=== PATIENT | female | born 1945 | race Caucasian/White ===

== ENCOUNTER 2019-11-30 11:03 | Outpatient (CLI) | payer MEDICARE ==
--- NOTE | 2019-11-30 11:47 | RAD ---
EXAM: XR Thoracic Spine 3 V STANDARD PROVIDED CLINICAL HISTORY: Follow-up fracture thoracolumbar spine. COMPARISON: None FINDINGS: There is a wedge-shaped compression fracture involving the T12 vertebral body with just greater than 50% loss of height anteriorly. Exact age of this fracture is indeterminate based on this exam. There is exaggerated kyphosis of the thoracolumbar spine centered at the level of the fracture. Multi level osteophytes are present throughout the thoracic spine with narrowing of the intervertebral disc spaces and osteophyte formation involving visualized upper lumbar spine. Vascular calcifications are seen in the thoracic aorta. Surgical clips overlie the right upper quadrant. IMPRESSION: 1. Wedge-shaped compression fracture T12 vertebral body of indeterminate age. No additional fracture or subluxation is seen involving the thoracic spine. 2. Multilevel degenerative changes.
== END 2019-11-30 11:04 | disposition home or self-care (01) ==
LOC: TBSIIMAG 11:03
PROVIDERS: ATTEND Neurological Surgery
DX: S22.080A Wedge compression fracture of T11-T12 vertebra, initial encounter for closed fracture (principal); M47.814 Spondylosis without myelopathy or radiculopathy, thoracic region
CPT/HCPCS: 72072

== ENCOUNTER 2020-09-04 13:32 | Outpatient (CLI) | payer MEDICARE ==
--- NOTE | 2020-09-04 14:51 | CT ---
CT LUMBAR SPINE WITHOUT CONTRAST: Date: 09/04/2020 INDICATION: Back pain. Radiation to right leg. Comparison made to MRI lumbar spine dated 09/21/2019 and a plain film of the lumbar spine dated 11/30. FINDINGS: There is an anterior wedge compression deformity involving the T12 vertebra which was present on prio r exams and appears stable. There is retropulsion of the posterior superior cortex at T12 into the sp inal canal which was described on the MRI exam of 09/21/2019. The degree of wedge compression does no t appear significantly changed from the prior studies. Degenerative disc changes are prominent at T11 -T12 and at T12-L1 with loss of disc space and vacuum phenomenon at these levels. The other lumbar vertebra maintain height and alignment. Degenerative disc changes are seen at all le vels; however, the L5-S1 disc space is relatively well preserved. There are moderate degenerative ost eophytes from all lumbar vertebra. Facet hypertrophy is noted at all levels. T11-T12: There is retropulsion of the posterior superior T12 vertebra into the spinal canal. This do es produce compression on the conus and results in moderate central canal stenosis. This was describe d on the prior MRI exam. T12-L1: There is mild broad based disc bulge without significant central canal stenosis. L1-2: Diffuse disc bulge with facet hypertrophy results in mild central canal stenosis. L2-3: Disc bulge and facet hypertrophy results in mild central canal stenosis. L3-4: Disc bulge and facet hypertrophy results in moderate central canal stenosis. L4-5: Broad based disc bulge combined with facet hypertrophy results in moderate to severe central c anal stenosis. L5-S1: Diffuse disc bulge. There may be broad based protrusion at this level. This appears to compre ss the thecal sac resulting in moderate to severe central canal stenosis, although the spinal canal i s suboptimally evaluated due to artifact. Osteophyte complex projects into the left foraminal and sheri ears to displace the exiting left L5 nerve root. IMPRESSION: 1. Anterior wedge compression deformity at T12 with retropulsion of posterior superior T12 vertebra into the spinal canal produces compression on the conus and moderate central canal stenosis. Findings were present on the MRI of 09/21/2019 and the degree of compression does not appear significantly ch anged. 2. Multilevel degenerative disc changes throughout the lumbar spine with central canal stenosis at s everal levels as described above. 3. Incidentally noted on soft tissue images is prominent calcification at the origin of both renal a rteries. Findings suggest bilateral renal artery stenosis. This could be further assessed with angiog marc study. POS: COMFORT
== END 2020-09-04 13:33 | disposition home or self-care (01) ==
LOC: BICCT 13:32
PROVIDERS: ATTEND Family Medicine
DX: G89.4 Chronic pain syndrome (principal); M43.8X4 Other specified deforming dorsopathies, thoracic region; M48.04 Spinal stenosis, thoracic region; M51.36 Other intervertebral disc degeneration, lumbar region; M48.061 Spinal stenosis, lumbar region without neurogenic claudication; I70.1 Atherosclerosis of renal artery
CPT/HCPCS: 72131

== ENCOUNTER 2021-01-02 15:46 | Emergency (ER) | payer MEDICARE ==
[2021-01-02 17:09] LABS: #Eosinphils 0.1 thou/uL (0.0-0.7); #Lymphocytes 1.6 thou/uL (1.20-3.40); #Monocytes 0.8 thou/uL (0.11-0.59); #Neutrophils 6.2 thou/uL (1.40-6.50); %Basophils 0.2 % (0.0-1.0); %Eosinophils 1.2 % (0.0-10.0); %Lymphocytes 18.4 % (21.0-51.0); %Monocytes 9.4 % (0.0-10.0); %Neutrophils 70.8 % (42.0-75.0); Hemoglobin 12.2 g/dL (12.0-16.0); Mean Corpuscular Hemoglobin 31.4 pg (27.0-31.0); Mean Corpuscular Volume 87.4 fL (78.0-98.0); Mean Platelet Volume 6.1 fL (7.4-10.4); Platelet Count 299 thou/uL (130-400); RBC Distribution Width 12.4 % (11.5-14.5); Red Blood Cell (RBC) Count 3.88 mill/uL (4.20-5.40); White Blood Cell (WBC) Count 8.7 thou/uL (4.8-10.8)
[2021-01-02 17:24] LABS: ALT (SGPT) 15 U/L (8-55); AST (SGOT) 18 U/L (5-34); Albumin 4.1 g/dL (3.4-4.8); Alkaline Phosphatase 72 U/L (40-110); Anion Gap 16 mmol/L (10-20); BUN (Urea Nitrogen) 39 mg/dL (9.8-20.1); Bilirubin, Total 0.4 mg/dL (0.2-1.2); Calc. Creatinine Clearance 0 mL/min (70-130); Calcium 9.3 mg/dL (7.8-10.44); Carbon Dioxide 22 mmol/L (23-31); Chloride 103 mmol/L (98-107); Globulin 3.5 g/dL (2.4-3.5); Glucose 123 mg/dL (83-110); Lipase 107 U/L (8-78); Magnesium 1.7 mg/dL (1.6-2.6); Protein, Total 7.6 g/dL (5.8-8.1); Sodium 138 mmol/L (136-145)
[2021-01-02 17:32] LABS: Potassium 2.7 mmol/L (3.5-5.1)
[2021-01-02] MEDS ORDERED: Potassium Chloride 20 MEQ TAB ONE (17:48)
== END 2021-01-02 18:15 | disposition home or self-care (01) ==
LOC: ERS 15:46
DX: E87.6 Hypokalemia (principal); R19.7 Diarrhea, unspecified; E78.5 Hyperlipidemia, unspecified; I10 Essential (primary) hypertension; F17.210 Nicotine dependence, cigarettes, uncomplicated; Z79.899 Other long term (current) drug therapy
CPT/HCPCS: 36415; 80053; 83605; 83690; 83735; 85025; 94760

== ENCOUNTER 2022-12-05 10:23 | Outpatient (CLI) | payer MEDICARE | END 2022-12-05 10:24 | disposition home or self-care (01) | LOC: TBSIIMAG 10:23 | PROVIDERS: ATTEND Family Medicine | DX: M47.26 Other spondylosis with radiculopathy, lumbar region (principal); M51.16 Intervertebral disc disorders with radiculopathy, lumbar region; M47.27 Other spondylosis with radiculopathy, lumbosacral region; M17.0 Bilateral primary osteoarthritis of knee; Z87.81 Personal history of (healed) traumatic fracture | CPT/HCPCS: 72148 ==

== ENCOUNTER 2022-12-07 10:45 | Inpatient (IN) | payer MEDICARE ==
[2022-12-07 13:02] LABS: Bilirubin Negative (Negative); Blood, Urine 3+ (Negative); Clarity Turbid (Clear); Glucose, Urine (Dipstick) Normal (Negative); Ketone, Urine 40 mg/dL (Negative); Leukocyte 500 Leu/uL (Negative); Nitrite Negative (Negative); Protein, Urine (Dipstick) 30 mg/dL (Neg-Trace); Specific Gravity, Urine 1.025 (1.002-1.036); Squamous Epithelial 0-3 HPF (0-3); Urobilinogen Normal mg/dL (Less than 2)
[2022-12-07 13:17] LABS: Bacteria/HPF 2+ HPF (None Seen); WBC/HPF 21-50 HPF (0-3)
[2022-12-07 13:22] LABS: Hemoglobin 13.5 g/dL (12.0-16.0); Mean Corpuscular HGB CONC 34.2 g/dL (32.0-36.0); Mean Corpuscular Hemoglobin 31.9 pg (27.0-31.0); Mean Corpuscular Volume 93.4 fl (78.0-98.0); Mean Platelet Volume 6.1 fL (7.4-10.4); Platelet Count 569 10x3/uL (130-400); RBC Distribution Width 14.2 % (11.5-14.5); Red Blood Cell (RBC) Count 4.23 mill/uL (4.20-5.40); White Blood Cell (WBC) Count 20.9 10x3/uL (4.8-10.8)
[2022-12-07 13:40] LABS: ALT (SGPT) 31 U/L (8-55); AST (SGOT) 39 U/L (5-34); Albumin 3.1 g/dL (3.4-4.8); Alkaline Phosphatase 82 U/L (40-110); Anion Gap 15 mmol/L (10-20); BUN (Urea Nitrogen) 29 mg/dL (9.8-20.1); Bilirubin, Total 0.6 mg/dL (0.2-1.2); CK (CPK) 64 U/L (29-168); Calc. Creatinine Clearance 0 mL/min (70-130); Calcium 11.7 mg/dL (7.8-10.44); Carbon Dioxide 25 mmol/L (23-31); Chloride 98 mmol/L (98-107); Estimated GFR 85; Globulin 3.4 g/dL (2.4-3.5); Glucose 91 mg/dL (83-110); Lipase 10 U/L (8-78); Potassium 3.8 mmol/L (3.5-5.1); Protein, Total 6.5 g/dL (5.8-8.1); Sodium 134 mmol/L (136-145)
[2022-12-07 13:41] LABS: Band 5 % (5-11); Lymphocytes 10 % (21-51); MDiff Complete? YES; Monocytes 2 % (0-10); Neutrophil 82 % (42-75); Platelet Morphology Comment Appears Increased; RBC Morphology Normal; Reactive Lymphocytes 1 % (0-10)
[2022-12-07] MEDS ORDERED: cefTRIAXone\\ROCEPHIN 2 GM VIAL ONE (15:29)
[2022-12-07] MEDS: Nicotine 14 MG PATCH TD SCH (18:05)
[2022-12-07] MEDS: Sodium Chloride 0.9% 1,000 ML IV SCH (18:05)
[2022-12-07 18:30] VITALS: BMI 25.0
[2022-12-08] MEDS: HYDROcodone/Acetaminophen 5/325 mg Tablet PO PRN ×3 (01:45→15:16)
[2022-12-08] MEDS: Sodium Chloride 0.9% 1,000 ML IV SCH ×3 (05:17→16:24)
[2022-12-08 08:09] LABS: #Eosinphils 0.2 thou/uL (0.0-0.7); #Lymphocytes 1.2 thou/uL (1.20-3.40); #Neutrophils 11.7 thou/uL (1.40-6.50); %Basophils 0.2 % (0.0-1.0); %Eosinophils 1.8 % (0.0-10.0); %Lymphocytes 8.5 % (21.0-51.0); %Monocytes 6.7 % (0.0-10.0); %Neutrophils 82.9 % (42.0-75.0); Hemoglobin 12.6 g/dL (12.0-16.0); Mean Corpuscular Hemoglobin 31.2 pg (27.0-31.0); Mean Corpuscular Volume 94.5 fl (78.0-98.0); Mean Platelet Volume 5.7 fL (7.4-10.4); Platelet Count 581 10x3/uL (130-400); RBC Distribution Width 14.2 % (11.5-14.5); Red Blood Cell (RBC) Count 4.05 mill/uL (4.20-5.40); White Blood Cell (WBC) Count 14.1 10x3/uL (4.8-10.8)
[2022-12-08 08:30] LABS: ALT (SGPT) 25 U/L (8-55); AST (SGOT) 32 U/L (5-34); Albumin 2.9 g/dL (3.4-4.8); Alkaline Phosphatase 71 U/L (40-110); Anion Gap 11 mmol/L (10-20); BUN (Urea Nitrogen) 25 mg/dL (9.8-20.1); Bilirubin, Total 0.4 mg/dL (0.2-1.2); Calc. Creatinine Clearance 76 mL/min (70-130); Calcium 10.5 mg/dL (7.8-10.44); Carbon Dioxide 23 mmol/L (23-31); Chloride 102 mmol/L (98-107); Estimated GFR 88; Globulin 2.9 g/dL (2.4-3.5); Glucose 108 mg/dL (83-110); Potassium 3.3 mmol/L (3.5-5.1); Protein, Total 5.8 g/dL (5.8-8.1); Sodium 133 mmol/L (136-145)
[2022-12-08] MEDS: Aspirin 81 mg Enteric Coated Tablet PO SCH (08:56)
[2022-12-08] MEDS: Lisinopril 10 MG TAB PO SCH (08:57)
[2022-12-08] MEDS: Ezetimibe 10 MG TAB PO SCH (08:57)
[2022-12-08] MEDS: Sertraline 100 MG TAB PO SCH (08:57)
[2022-12-08] MEDS ORDERED: Aspirin 81 mg Enteric Coated Tablet PO SCH (09:00)
[2022-12-08] MEDS ORDERED: Non-Formulary Item 1 EACH (Atorvastatin Calcium [Atorvastatin Calcium] 80 MG Tablet) PO SCH (09:00)
[2022-12-08] MEDS ORDERED: Lidocaine 5% Patch TD SCH ×2 (09:38→10:00)
[2022-12-08] MEDS ORDERED: Electrolyte Replacement Protocol 1 EACH FS SCH (09:45)
[2022-12-08] MEDS: Morphine 4 MG/ML VIAL SLOW IVP PRN ×3 (10:02→22:01)
[2022-12-08] MEDS ORDERED: Potassium Chloride 20 MEQ TAB PO SCH (10:30)
[2022-12-08] MEDS: Gabapentin 300 MG CAP PO PRN (11:16)
[2022-12-08 15:29] LABS: Anion Gap 12 mmol/L (10-20); BUN (Urea Nitrogen) 23 mg/dL (9.8-20.1); Calc. Creatinine Clearance 76 mL/min (70-130); Calcium 10.7 mg/dL (7.8-10.44); Carbon Dioxide 22 mmol/L (23-31); Chloride 104 mmol/L (98-107); Estimated GFR 88; Glucose 106 mg/dL (83-110); Potassium 3.8 mmol/L (3.5-5.1); Sodium 134 mmol/L (136-145)
[2022-12-08] MEDS: cefTRIAXone\\ROCEPHIN 1 GM in Sodium Chloride 0.9% 100 ML IVPB SCH (16:23)
[2022-12-08] MEDS: Nicotine 14 MG PATCH TD SCH (16:24)
[2022-12-08] MEDS: Transdermal Patch Removal TOP SCH (21:28)
[2022-12-08] MEDS: Atorvastatin Calcium 40 MG TAB PO SCH (21:28)
[2022-12-09] MEDS: Sodium Chloride 0.9% 1,000 ML IV SCH ×3 (04:19→17:29)
[2022-12-09] MEDS: Morphine 4 MG/ML VIAL SLOW IVP PRN (04:35)
[2022-12-09 06:58] LABS: #Basophils 0.1 thou/uL (0.0-0.2); #Eosinphils 0.2 thou/uL (0.0-0.7); #Monocytes 0.9 thou/uL (0.11-0.59); %Basophils 0.8 % (0.0-1.0); %Eosinophils 1.3 % (0.0-10.0); %Lymphocytes 5.8 % (21.0-51.0); %Monocytes 5.6 % (0.0-10.0); %Neutrophils 86.5 % (42.0-75.0); Hemoglobin 11.7 g/dL (12.0-16.0); Mean Corpuscular HGB CONC 33.6 g/dL (32.0-36.0); Mean Corpuscular Hemoglobin 31.7 pg (27.0-31.0); Mean Corpuscular Volume 94.3 fl (78.0-98.0); Platelet Count 473 10x3/uL (130-400); RBC Distribution Width 14.3 % (11.5-14.5); White Blood Cell (WBC) Count 16.2 10x3/uL (4.8-10.8)
[2022-12-09 07:01] LABS: ALT (SGPT) 27 U/L (8-55); AST (SGOT) 31 U/L (5-34); Albumin 2.6 g/dL (3.4-4.8); Alkaline Phosphatase 74 U/L (40-110); Anion Gap 11 mmol/L (10-20); BUN (Urea Nitrogen) 24 mg/dL (9.8-20.1); Bilirubin, Total 0.3 mg/dL (0.2-1.2); Calc. Creatinine Clearance 83 mL/min (70-130); Carbon Dioxide 20 mmol/L (23-31); Chloride 105 mmol/L (98-107); Estimated GFR 91; Globulin 2.8 g/dL (2.4-3.5); Glucose 108 mg/dL (83-110); Magnesium 1.4 mg/dL (1.6-2.6); Potassium 3.8 mmol/L (3.5-5.1); Protein, Total 5.4 g/dL (5.8-8.1); Sodium 132 mmol/L (136-145)
[2022-12-09] MEDS ORDERED: Magnesium Sulfate In Water 4 GM in Premix Bag 1 BAG IVPB SCH (08:00)
[2022-12-09] MEDS ORDERED: Morphine 4 MG/ML VIAL SLOW IVP PRN (08:57)
[2022-12-09] MEDS: Vit A,C & E/Lutein/Minerals Tablet PO SCH (09:31)
[2022-12-09] MEDS: Ezetimibe 10 MG TAB PO SCH (09:33)
[2022-12-09] MEDS: Sertraline 100 MG TAB PO SCH (09:34)
[2022-12-09] MEDS: Multivit, Therapeutic 1 TAB PO SCH (09:34)
[2022-12-09] MEDS: Aspirin 81 mg Enteric Coated Tablet PO SCH (09:35)
[2022-12-09] MEDS: Lisinopril 10 MG TAB PO SCH (09:35)
[2022-12-09] MEDS: Lidocaine 5% Patch TD SCH (09:46)
[2022-12-09 12:06] LABS: Campy jejuni + coli by PCR Negative (Negative); STEC Shiga Toxin 1+2 Negative (Negative); Salmonella spp. by PCR Negative (Negative); Shigella spp + EIEC by PCR Negative (Negative)
[2022-12-09] MEDS: Ondansetron PF 4 MG/2 ML Vial IVP PRN (12:59)
[2022-12-09] MEDS ORDERED: diphenhydrAMINE 50 MG CAP PO SCH (15:15)
[2022-12-09] MEDS ORDERED: Sodium Chloride 0.9% 1,000 ML IV SCH (15:15)
[2022-12-09] MEDS ORDERED: Metoclopramide HCl 10 MG/2 ML VIAL IVP SCH (15:15)
[2022-12-09] MEDS: cefTRIAXone\\ROCEPHIN 1 GM in Sodium Chloride 0.9% 100 ML IVPB SCH (15:45)
[2022-12-09] MEDS ORDERED: Pantoprazole 40 MG VIAL IVP SCH (16:00)
[2022-12-09] MEDS: traMADol HCl 50 MG TAB PO PRN (18:09)
[2022-12-09] MEDS: Nicotine 14 MG PATCH TD SCH (18:10)
[2022-12-09] MEDS: Ketorolac Tromethamine 30 MG/ML VIAL IVP SCH ×2 (18:11→23:58)
[2022-12-09] MEDS: Atorvastatin Calcium 40 MG TAB PO SCH (20:01)
[2022-12-09] MEDS: Transdermal Patch Removal TOP SCH (20:01)
[2022-12-10] MEDS: Sodium Chloride 0.9% 1,000 ML IV SCH ×3 (01:13→16:25)
[2022-12-10] MEDS: traMADol HCl 50 MG TAB PO PRN ×3 (04:16→16:24)
[2022-12-10] MEDS: Ketorolac Tromethamine 30 MG/ML VIAL IVP SCH ×2 (05:58→12:18)
[2022-12-10] MEDS: Lisinopril 10 MG TAB PO SCH (08:55)
[2022-12-10] MEDS: Multivit, Therapeutic 1 TAB PO SCH (08:55)
[2022-12-10] MEDS: Ezetimibe 10 MG TAB PO SCH (08:56)
[2022-12-10] MEDS: Aspirin 81 mg Enteric Coated Tablet PO SCH (08:56)
[2022-12-10] MEDS: Saccharomyces boulardii 250 MG CAP PO SCH (08:56)
[2022-12-10] MEDS: Sertraline 100 MG TAB PO SCH (08:56)
[2022-12-10] MEDS: Vit A,C & E/Lutein/Minerals Tablet PO SCH (08:56)
[2022-12-10] MEDS: Lidocaine 5% Patch TD SCH (08:59)
[2022-12-10 09:01] LABS: ALT (SGPT) 31 U/L (8-55); AST (SGOT) 42 U/L (5-34); Albumin 2.5 g/dL (3.4-4.8); Alkaline Phosphatase 81 U/L (40-110); Anion Gap 12 mmol/L (10-20); BUN (Urea Nitrogen) 27 mg/dL (9.8-20.1); Bilirubin, Total 0.4 mg/dL (0.2-1.2); Calc. Creatinine Clearance 73 mL/min (70-130); Calcium 10.7 mg/dL (7.8-10.44); Carbon Dioxide 21 mmol/L (23-31); Chloride 103 mmol/L (98-107); Estimated GFR 83; Glucose 103 mg/dL (83-110); Magnesium 1.9 mg/dL (1.6-2.6); Potassium 3.8 mmol/L (3.5-5.1); Protein, Total 5.5 g/dL (5.8-8.1); Sodium 132 mmol/L (136-145)
[2022-12-10 09:14] LABS: Hemoglobin 12.7 g/dL (12.0-16.0); Mean Corpuscular HGB CONC 33.8 g/dL (32.0-36.0); Mean Corpuscular Hemoglobin 31.7 pg (27.0-31.0); Mean Corpuscular Volume 93.8 fl (78.0-98.0); Platelet Count 531 10x3/uL (130-400); RBC Distribution Width 14.2 % (11.5-14.5); Red Blood Cell (RBC) Count 4.01 mill/uL (4.20-5.40); White Blood Cell (WBC) Count 17.6 10x3/uL (4.8-10.8)
[2022-12-10] MEDS: Pantoprazole 40 MG VIAL IVP SCH (09:18)
[2022-12-10 09:33] LABS: Band 4 % (5-11); Eosinophils 1 % (0-10); Lymphocytes 7 % (21-51); MDiff Complete? YES; Monocytes 5 % (0-10); Neutrophil 83 % (42-75); Platelet Morphology Comment Appears Increased; Polychromasia SLIGHT = 2-3 cells (100X) (0-2/hpf)
[2022-12-10] MEDS: HYDROcodone/Acetaminophen 5/325 mg Tablet PO PRN ×2 (10:13→18:35)
[2022-12-10] MEDS ORDERED: Magnesium 2 GM/50 ML(in water) 2 GM in Premix Bag 1 BAG IVPB SCH (10:30)
[2022-12-10 15:14] LABS: Kappa Lambda Light Chain Ratio 1.51 (0.26-1.65); Kappa Light Chains 49.7 mg/L (3.3-19.4)
[2022-12-10] MEDS: cefTRIAXone\\ROCEPHIN 1 GM in Sodium Chloride 0.9% 100 ML IVPB SCH (16:24)
[2022-12-10] MEDS: Nicotine 14 MG PATCH TD SCH (16:25)
[2022-12-10] MEDS: HYDROcodone/Acetaminophen 5/325 mg Tablet PO SCH (21:19)
[2022-12-10] MEDS: Atorvastatin Calcium 40 MG TAB PO SCH (21:46)
[2022-12-10] MEDS: Transdermal Patch Removal TOP SCH (22:08)
[2022-12-10] MEDS: Senokot 8.6 MG TAB PO SCH (22:08)
[2022-12-11] MEDS: Sodium Chloride 0.9% 1,000 ML IV SCH ×2 (00:05→18:08)
[2022-12-11] MEDS: HYDROcodone/Acetaminophen 5/325 mg Tablet PO PRN (05:03)
[2022-12-11 08:41] LABS: ALT (SGPT) 36 U/L (8-55); AST (SGOT) 44 U/L (5-34); Albumin 2.5 g/dL (3.4-4.8); Alkaline Phosphatase 85 U/L (40-110); Anion Gap 13 mmol/L (10-20); BUN (Urea Nitrogen) 29 mg/dL (9.8-20.1); Bilirubin, Total 0.4 mg/dL (0.2-1.2); Calc. Creatinine Clearance 76 mL/min (70-130); Calcium 10.7 mg/dL (7.8-10.44); Carbon Dioxide 19 mmol/L (23-31); Chloride 104 mmol/L (98-107); Estimated GFR 88; Glucose 114 mg/dL (83-110); Potassium 3.9 mmol/L (3.5-5.1); Protein, Total 5.5 g/dL (5.8-8.1); Sodium 132 mmol/L (136-145)
[2022-12-11] MEDS: Vit A,C & E/Lutein/Minerals Tablet PO SCH (09:03)
[2022-12-11] MEDS: Aspirin 81 mg Enteric Coated Tablet PO SCH (09:03)
[2022-12-11] MEDS: Lisinopril 10 MG TAB PO SCH (09:03)
[2022-12-11] MEDS: Saccharomyces boulardii 250 MG CAP PO SCH (09:04)
[2022-12-11] MEDS: Multivit, Therapeutic 1 TAB PO SCH (09:04)
[2022-12-11] MEDS: Ezetimibe 10 MG TAB PO SCH (09:04)
[2022-12-11] MEDS: Sertraline 100 MG TAB PO SCH (09:04)
[2022-12-11] MEDS: HYDROcodone/Acetaminophen 5/325 mg Tablet PO SCH ×3 (09:07→21:54)
[2022-12-11] MEDS: Pantoprazole 40 MG VIAL IVP SCH (09:08)
[2022-12-11] MEDS: Lidocaine 5% Patch TD SCH (09:08)
[2022-12-11] MEDS: Ondansetron PF 4 MG/2 ML Vial IVP PRN ×3 (09:19→22:10)
[2022-12-11 09:22] LABS: Band 3 % (5-11); Hemoglobin 13.1 g/dL (12.0-16.0); Lymphocytes 7 % (21-51); MDiff Complete? YES; Mean Corpuscular Hemoglobin 30.8 pg (27.0-31.0); Mean Corpuscular Volume 93.4 fl (78.0-98.0); Mean Platelet Volume 6.1 fL (7.4-10.4); Monocytes 3 % (0-10); Neutrophil 87 % (42-75); Platelet Count 501 10x3/uL (130-400); Platelet Morphology Comment Appears Increased; RBC Distribution Width 14.4 % (11.5-14.5); RBC Morphology Normal; Red Blood Cell (RBC) Count 4.24 mill/uL (4.20-5.40); White Blood Cell (WBC) Count 19.3 10x3/uL (4.8-10.8)
[2022-12-11] MEDS ORDERED: Magnesium 2 GM/50 ML(in water) 2 GM in Premix Bag 1 BAG IVPB SCH (10:00)
[2022-12-11] MEDS ORDERED: VANCOMYCIN 1.25 GM/250 ML BAG 1.25 GM in Premix Bag 1 BAG IVPB SCH (10:00)
[2022-12-11] MEDS ORDERED: VANCOMYCIN 1.75 GM/500 ML BAG 1.75 GM in Premix Bag 1 BAG IVPB SCH (10:00)
[2022-12-11] MEDS: cefTRIAXone\\ROCEPHIN 1 GM in Sodium Chloride 0.9% 100 ML IVPB SCH (14:00)
[2022-12-11] MEDS: traMADol HCl 50 MG TAB PO PRN (14:05)
[2022-12-11 14:37] LABS: A/G Ratio 0.8 (0.7-1.7); Albumin 2.5 g/dL (2.9-4.4); Alpha 1 0.3 g/dL (0.0-0.4); Alpha 2 0.8 g/dL (0.4-1.0); Beta 0.7 g/dL (0.7-1.3); Gamma 1.2 g/dL (0.4-1.8); IgA - Total IgA (Sendout) 117 mg/dL (64-422); Immunoglobulin - G (Sendout) 1296 mg/dL (586-1602); Immunoglobulin - M (Sendout) 97 mg/dL (26-217); M-Spike Not Observed g/dL (Not Observed); Protein Electrophoresis Intrp Note: (.)
[2022-12-11] MEDS: Nicotine 14 MG PATCH TD SCH (18:06)
[2022-12-11] MEDS: Atorvastatin Calcium 40 MG TAB PO SCH (21:53)
[2022-12-11] MEDS: Transdermal Patch Removal TOP SCH (21:54)
[2022-12-11] MEDS: Senokot 8.6 MG TAB PO SCH (21:54)
[2022-12-12] MEDS: Sodium Chloride 0.9% 1,000 ML IV SCH ×2 (05:56→14:26)
[2022-12-12] MEDS: traMADol HCl 50 MG TAB PO PRN ×2 (09:39→15:44)
[2022-12-12] MEDS: Ondansetron PF 4 MG/2 ML Vial IVP PRN ×2 (09:39→21:10)
[2022-12-12] MEDS: Aspirin 81 mg Enteric Coated Tablet PO SCH (09:45)
[2022-12-12] MEDS: Lisinopril 10 MG TAB PO SCH (09:45)
[2022-12-12] MEDS: Ezetimibe 10 MG TAB PO SCH (09:45)
[2022-12-12] MEDS: Vit A,C & E/Lutein/Minerals Tablet PO SCH (09:46)
[2022-12-12] MEDS: Saccharomyces boulardii 250 MG CAP PO SCH (09:47)
[2022-12-12] MEDS: Sertraline 100 MG TAB PO SCH (09:47)
[2022-12-12] MEDS: Multivit, Therapeutic 1 TAB PO SCH (09:47)
[2022-12-12] MEDS: Pantoprazole 40 MG VIAL IVP SCH (09:49)
[2022-12-12] MEDS: HYDROcodone/Acetaminophen 5/325 mg Tablet PO SCH (09:51)
[2022-12-12] MEDS: Lidocaine 5% Patch TD SCH (09:52)
[2022-12-12] MEDS: HYDROcodone/Acetaminophen 5/325 mg Tablet PO PRN ×2 (11:55→21:11)
[2022-12-12] MEDS: Nicotine 14 MG PATCH TD SCH (15:46)
[2022-12-12] MEDS: Atorvastatin Calcium 40 MG TAB PO SCH (21:10)
[2022-12-12] MEDS: Senokot 8.6 MG TAB PO SCH (21:17)
[2022-12-12] MEDS: Transdermal Patch Removal TOP SCH (21:17)
[2022-12-13 06:03] LABS: Hemoglobin 12.6 g/dL (12.0-16.0); Mean Corpuscular HGB CONC 33.1 g/dL (32.0-36.0); Mean Corpuscular Hemoglobin 31.1 pg (27.0-31.0); Mean Corpuscular Volume 93.9 fl (78.0-98.0); Mean Platelet Volume 5.8 fL (7.4-10.4); Platelet Count 580 10x3/uL (130-400); RBC Distribution Width 14.6 % (11.5-14.5); Red Blood Cell (RBC) Count 4.05 mill/uL (4.20-5.40)
[2022-12-13 06:25] LABS: Anion Gap 15 mmol/L (10-20); BUN (Urea Nitrogen) 39 mg/dL (9.8-20.1); Calc. Creatinine Clearance 68 mL/min (70-130); Calcium 11.3 mg/dL (7.8-10.44); Carbon Dioxide 16 mmol/L (23-31); Chloride 103 mmol/L (98-107); Estimated GFR 77; Glucose 111 mg/dL (83-110); Sodium 130 mmol/L (136-145)
[2022-12-13] MEDS: Ondansetron PF 4 MG/2 ML Vial IVP PRN ×2 (06:42→12:45)
[2022-12-13] MEDS: Vit A,C & E/Lutein/Minerals Tablet PO SCH (09:00)
[2022-12-13] MEDS: Lidocaine 5% Patch TD SCH (09:00)
[2022-12-13] MEDS: Lisinopril 10 MG TAB PO SCH (09:00)
[2022-12-13] MEDS: Multivit, Therapeutic 1 TAB PO SCH (09:00)
[2022-12-13] MEDS: Aspirin 81 mg Enteric Coated Tablet PO SCH (09:00)
[2022-12-13] MEDS ORDERED: Lactated Ringer's 500 ML IV SCH (09:00)
[2022-12-13] MEDS: Saccharomyces boulardii 250 MG CAP PO SCH (09:00)
[2022-12-13] MEDS: Sertraline 100 MG TAB PO SCH (09:00)
[2022-12-13] MEDS: Pantoprazole 40 MG VIAL IVP SCH (09:01)
[2022-12-13] MEDS: Ezetimibe 10 MG TAB PO SCH (09:01)
[2022-12-13] MEDS: traMADol HCl 50 MG TAB PO PRN (09:09)
[2022-12-13] MEDS: Sodium Chloride 0.9% 1,000 ML IV SCH (11:09)
[2022-12-13] MEDS ORDERED: Prochlorperazine 10 MG/2 ML VIAL IM PRN (11:43)
[2022-12-13] MEDS: Gabapentin 300 MG CAP PO PRN (12:51)
[2022-12-13 14:22] LABS: Bilirubin Negative (Negative); Blood, Urine 3+ (Negative); CAUTI Indications for Culture Dysuria,urgency,freq; Clarity Turbid (Clear); Glucose, Urine (Dipstick) Normal (Negative); Ketone, Urine 40 mg/dL (Negative); Leukocyte 500 Leu/uL (Negative); Nitrite Negative (Negative); Protein, Urine (Dipstick) 30 mg/dL (Neg-Trace); Specific Gravity, Urine 1.025 (1.002-1.036); Squamous Epithelial 0-3 HPF (0-3); Urobilinogen Normal mg/dL (Less than 2)
[2022-12-13 14:25] LABS: Bacteria/HPF 1+ HPF (None Seen)
[2022-12-13 14:27] LABS: Urine Culture Reflex No No
[2022-12-13] MEDS: HYDROcodone/Acetaminophen 5/325 mg Tablet PO PRN ×2 (15:09→23:24)
[2022-12-13] MEDS: Nicotine 14 MG PATCH TD SCH (15:09)
[2022-12-13] MEDS: Atorvastatin Calcium 40 MG TAB PO SCH (20:45)
[2022-12-13] MEDS: Senokot 8.6 MG TAB PO SCH (20:45)
[2022-12-13] MEDS: Transdermal Patch Removal TOP SCH (20:46)
[2022-12-14] MEDS: Ondansetron PF 4 MG/2 ML Vial IVP PRN ×3 (05:59→19:30)
[2022-12-14] MEDS: traMADol HCl 50 MG TAB PO PRN ×2 (05:59→17:57)
[2022-12-14 07:05] LABS: Hemoglobin 12.2 g/dL (12.0-16.0); Mean Corpuscular HGB CONC 33.2 g/dL (32.0-36.0); Mean Corpuscular Hemoglobin 31.2 pg (27.0-31.0); Mean Corpuscular Volume 93.9 fl (78.0-98.0); Platelet Count 479 10x3/uL (130-400); RBC Distribution Width 14.4 % (11.5-14.5); Red Blood Cell (RBC) Count 3.91 mill/uL (4.20-5.40); White Blood Cell (WBC) Count 31.1 10x3/uL (4.8-10.8)
[2022-12-14 07:22] LABS: Anion Gap 13 mmol/L (10-20); BUN (Urea Nitrogen) 42 mg/dL (9.8-20.1); Calc. Creatinine Clearance 65 mL/min (70-130); Carbon Dioxide 16 mmol/L (23-31); Chloride 103 mmol/L (98-107); Estimated GFR 73; Glucose 116 mg/dL (83-110); Sodium 128 mmol/L (136-145)
[2022-12-14 07:29] LABS: Band 3 % (5-11); Lymphocytes 1 % (21-51); MDiff Complete? YES; Monocytes 2 % (0-10); Neutrophil 94 % (42-75); Platelet Morphology Comment Appears Increased; RBC Morphology Normal
[2022-12-14] MEDS: Aspirin 81 mg Enteric Coated Tablet PO SCH (09:40)
[2022-12-14] MEDS: Ezetimibe 10 MG TAB PO SCH (09:40)
[2022-12-14] MEDS: Lisinopril 10 MG TAB PO SCH (09:41)
[2022-12-14] MEDS: Lidocaine 5% Patch TD SCH (09:41)
[2022-12-14] MEDS: Pantoprazole 40 MG VIAL IVP SCH (09:42)
[2022-12-14] MEDS: Multivit, Therapeutic 1 TAB PO SCH (09:42)
[2022-12-14] MEDS: Sertraline 100 MG TAB PO SCH (09:44)
[2022-12-14] MEDS: Saccharomyces boulardii 250 MG CAP PO SCH (09:44)
[2022-12-14] MEDS: Vit A,C & E/Lutein/Minerals Tablet PO SCH (09:44)
[2022-12-14] MEDS ORDERED: Zoledronic Acid 4 MG in Sodium Chloride 0.9% 100 ML IVPB SCH (13:00)
[2022-12-14] MEDS ORDERED: Cholestyramine/Aspartame 4 gm Packet PO SCH (13:00)
[2022-12-14] MEDS: HYDROcodone/Acetaminophen 5/325 mg Tablet PO PRN ×2 (13:48→23:31)
[2022-12-14] MEDS: Nicotine 14 MG PATCH TD SCH (17:57)
[2022-12-14] MEDS: Atorvastatin Calcium 40 MG TAB PO SCH (23:29)
[2022-12-14] MEDS: Transdermal Patch Removal TOP SCH (23:29)
[2022-12-14] MEDS: Cholestyramine/Aspartame 4 gm Packet PO SCH (23:31)
[2022-12-15] MEDS: Ondansetron PF 4 MG/2 ML Vial IVP PRN ×2 (00:49→18:20)
[2022-12-15] MEDS ORDERED: fentaNYL PF 100 MCG/2 ML SYRINGE ONE (07:09)
[2022-12-15] MEDS ORDERED: ePHEDrine 50 MG/ML VIAL ONE (08:14)
[2022-12-15] MEDS ORDERED: Ondansetron PF 4 MG/2 ML Vial ONE (08:14)
[2022-12-15] MEDS ORDERED: PROPOFOL 200 MG/20 ML VIAL ONE (08:14)
[2022-12-15] MEDS ORDERED: Lidocaine 1% PF 5 ML VIAL ONE (08:14)
[2022-12-15] MEDS ORDERED: Ondansetron HCl/PF 4 MG/2 ML Vial IVP PRN (09:29)
[2022-12-15] MEDS ORDERED: Promethazine HCl 25 MG/ML VIAL IM PRN (09:29)
[2022-12-15] MEDS: Aspirin 81 mg Enteric Coated Tablet PO SCH (10:22)
[2022-12-15] MEDS: Ezetimibe 10 MG TAB PO SCH (10:22)
[2022-12-15] MEDS: Sertraline 100 MG TAB PO SCH (10:23)
[2022-12-15] MEDS: Saccharomyces boulardii 250 MG CAP PO SCH (10:23)
[2022-12-15] MEDS: Lidocaine 5% Patch TD SCH (10:23)
[2022-12-15] MEDS: Vit A,C & E/Lutein/Minerals Tablet PO SCH (10:23)
[2022-12-15] MEDS: Pantoprazole 40 MG VIAL IVP SCH (10:23)
[2022-12-15] MEDS: Multivit, Therapeutic 1 TAB PO SCH (10:23)
[2022-12-15] MEDS: Cholestyramine/Aspartame 4 gm Packet PO SCH ×2 (10:24→21:50)
[2022-12-15] MEDS: HYDROcodone/Acetaminophen 5/325 mg Tablet PO PRN ×2 (13:01→21:59)
[2022-12-15] MEDS: traMADol HCl 50 MG TAB PO PRN (16:46)
[2022-12-15] MEDS: Nicotine 14 MG PATCH TD SCH (16:46)
[2022-12-15] MEDS: Atorvastatin Calcium 40 MG TAB PO SCH (21:50)
[2022-12-15] MEDS: Transdermal Patch Removal TOP SCH (22:00)
[2022-12-15] MEDS ORDERED: Promethazine HCl 12.5 MG in Sodium Chloride 0.9% 50 ML IVPB SCH (22:00)
[2022-12-16] MEDS: traMADol HCl 50 MG TAB PO PRN (03:45)
[2022-12-16] MEDS: Ondansetron PF 4 MG/2 ML Vial IVP PRN ×2 (03:45→12:39)
[2022-12-16] MEDS: HYDROcodone/Acetaminophen 5/325 mg Tablet PO PRN ×2 (06:10→12:39)
[2022-12-16 07:22] LABS: Hemoglobin 12.6 g/dL (12.0-16.0); Mean Corpuscular HGB CONC 33.2 g/dL (32.0-36.0); Mean Corpuscular Volume 93.2 fl (78.0-98.0); Platelet Count 482 10x3/uL (130-400); RBC Distribution Width 14.7 % (11.5-14.5); Red Blood Cell (RBC) Count 4.08 mill/uL (4.20-5.40); White Blood Cell (WBC) Count 28.7 10x3/uL (4.8-10.8)
[2022-12-16 07:37] LABS: Anion Gap 14 mmol/L (10-20); BUN (Urea Nitrogen) 60 mg/dL (9.8-20.1); Calc. Creatinine Clearance 48 mL/min (70-130); Calcium 11.3 mg/dL (7.8-10.44); Carbon Dioxide 15 mmol/L (23-31); Chloride 99 mmol/L (98-107); Estimated GFR 50; Glucose 119 mg/dL (83-110); Potassium 4.3 mmol/L (3.5-5.1); Sodium 124 mmol/L (136-145)
[2022-12-16 07:59] VITALS: BP 105/68; TEMP 98.5
[2022-12-16] MEDS ORDERED: Lidocaine 4% Patch TD SCH (09:00)
[2022-12-16] MEDS: Ezetimibe 10 MG TAB PO SCH (09:43)
[2022-12-16] MEDS: Aspirin 81 mg Enteric Coated Tablet PO SCH (09:43)
[2022-12-16] MEDS: Pantoprazole 40 MG VIAL IVP SCH (09:44)
[2022-12-16] MEDS: Multivit, Therapeutic 1 TAB PO SCH (09:44)
[2022-12-16] MEDS: Saccharomyces boulardii 250 MG CAP PO SCH (09:44)
[2022-12-16] MEDS: Cholestyramine/Aspartame 4 gm Packet PO SCH (09:45)
[2022-12-16] MEDS: Vit A,C & E/Lutein/Minerals Tablet PO SCH (09:45)
[2022-12-16] MEDS: Sertraline 100 MG TAB PO SCH (09:45)
[2022-12-16] MEDS ORDERED: Fentanyl 100 MCG/2 ML VIAL SLOW IVP PRN (11:31)
[2022-12-16] MEDS ORDERED: Lorazepam 2 MG/ML VIAL SLOW IVP PRN ×2 (15:40)
[2022-12-16] MEDS ORDERED: Morphine 4 MG/ML VIAL SLOW IVP PRN (15:40)
[2022-12-16] MEDS ORDERED: Morphine 2 MG/ML VIAL SLOW IVP PRN (15:40)
[2022-12-16] MEDS ORDERED: Scopolamine 1.5 mg/72 hour Patch TD SCH (15:45)
[2022-12-16] MEDS: Nicotine 14 MG PATCH TD SCH (16:31)
== END 2022-12-16 18:00 | disposition hospice, inpatient (51) | DRG 669 ==
LOC: ERS 10:45 → T4-B 16:53
PROVIDERS: ADMIT Internal Medicine; ATTEND Internal Medicine
PROC: 0TBB8ZZ Excision of Bladder, Via Natural or Artificial Opening Endoscopic (ICD-10-PCS; principal; 2022-12-15)
DX: N30.00 Acute cystitis without hematuria (principal); J90 Pleural effusion, not elsewhere classified; M48.54XA Collapsed vertebra, not elsewhere classified, thoracic region, initial encounter for fracture; E78.5 Hyperlipidemia, unspecified; I10 Essential (primary) hypertension; F17.210 Nicotine dependence, cigarettes, uncomplicated; E83.52 Hypercalcemia; R19.7 Diarrhea, unspecified; Z20.822 Contact with and (suspected) exposure to COVID-19; Z66 Do not resuscitate; C67.9 Malignant neoplasm of bladder, unspecified; Z98.890 Other specified postprocedural states; Z90.49 Acquired absence of other specified parts of digestive tract; Z90.710 Acquired absence of both cervix and uterus
CPT/HCPCS: 36415; 51701; 70450; 71045; 72146; 74176; 76770; 78306; 80048; 80053; 81001; 81003; 81015; 82550; 83605; 83630; 83690; 83735; 83880; 83883; 84155; 84165; 84443; 84484; 85025; 85027; 86334; 87040; 87077; 87086; 87186; 87324; 87449; 87505; 87811; 88307; 93005; 96361; 96365; A9503; C9113; J0696; J0780; J1650; J1885; J2270; J2405; J2550; J2704; J2765; J3010; J3370; J3475; J3489; J3490; J7050; J7120; U0003; U0005

== ENCOUNTER 2022-12-16 18:32 | Inpatient (IN) | payer OTHER ==
[2022-12-16] MEDS ORDERED: Bisacodyl 10 MG SUPP PR PRN (18:57)
[2022-12-16] MEDS ORDERED: Acetaminophen 650 MG Suppository PR PRN (19:00)
[2022-12-16] MEDS ORDERED: Haloperidol Lactate 5 MG/ML VIAL SLOW IVP PRN (19:00)
[2022-12-16] MEDS ORDERED: Ondansetron PF 4 MG/2 ML Vial IVP PRN (19:00)
[2022-12-16] MEDS ORDERED: Promethazine HCl 25 MG SUPP PR PRN (19:00)
[2022-12-16] MEDS ORDERED: Scopolamine 1.5 mg/72 hour Patch TOP PRN (19:00)
[2022-12-16] MEDS: Morphine 2 MG/ML VIAL SLOW IVP PRN ×2 (19:36→22:11)
[2022-12-17] MEDS: Morphine 2 MG/ML VIAL SLOW IVP PRN ×6 (00:37→11:06)
[2022-12-17] MEDS ORDERED: Morphine 2 MG/ML VIAL SLOW IVP PRN (11:14)
[2022-12-17] MEDS: Lorazepam 2 MG/ML VIAL SLOW IVP PRN (12:00)
[2022-12-17] MEDS: Morphine 4 MG/ML VIAL SLOW IVP PRN ×5 (15:11→23:03)
[2022-12-17 20:33] VITALS: TEMP 97.8
[2022-12-18] MEDS: Lorazepam 2 MG/ML VIAL SLOW IVP PRN ×3 (01:01→08:36)
[2022-12-18] MEDS: Morphine 4 MG/ML VIAL SLOW IVP PRN ×18 (02:00→19:28)
[2022-12-18] MEDS: Glycopyrrolate 0.2 MG/ML 5 ML SYRINGE SLOW IVP PRN ×3 (03:26→19:28)
[2022-12-18 07:19] VITALS: BP 50/31
== END 2022-12-18 20:00 | disposition expired | DRG 951 ==
LOC: T4-B 18:32
PROVIDERS: ADMIT Family Medicine; ATTEND Family Medicine
DX: Z51.5 Encounter for palliative care (principal); M84.48XA Pathological fracture, other site, initial encounter for fracture; Z66 Do not resuscitate; E78.5 Hyperlipidemia, unspecified; I10 Essential (primary) hypertension; C67.9 Malignant neoplasm of bladder, unspecified; Z91.041 Radiographic dye allergy status; Z88.1 Allergy status to other antibiotic agents
CPT/HCPCS: J2060; J2270; J2272